=== PATIENT | male | born 1985 | race Hispanic/Latino ===

== ENCOUNTER 2017-05-31 23:42 | Emergency (ER) | payer SELFPAY ==
[2017-06-01 01:09] LABS: #Eosinphils 0.1 thou/uL (0.0-0.7); #Lymphocytes 1.6 thou/uL (1.20-3.40); #Neutrophils 9.7 thou/uL (1.40-6.50); %Basophils 0.4 % (0.0-1.0); %Eosinophils 0.8 % (0.0-10.0); %Lymphocytes 12.8 % (21.0-51.0); Hemoglobin 13.1 g/dL (14.0-18.0); Mean Corpuscular HGB CONC 33.8 g/dL (32.0-36.0); Mean Corpuscular Hemoglobin 32.1 pg (27.0-31.0); Mean Platelet Volume 7.9 fL (7.4-10.4); Platelet Count 265 thou/uL (130-400); RBC Distribution Width 11.9 % (11.5-14.5); Red Blood Cell (RBC) Count 4.08 mill/uL (4.70-6.10); White Blood Cell (WBC) Count 12.5 thou/uL (4.8-10.8)
[2017-06-01 01:15] LABS: PTT 26.1 SEC (22.9-36.1); Prothrombin Time 13.1 SEC (12.0-14.7)
[2017-06-01 01:33] LABS: ALT (SGPT) 88 U/L (8-55); AST (SGOT) 66 U/L (5-34); Albumin 3.7 g/dL (3.5-5.0); Alkaline Phosphatase 111 U/L (40-150); Anion Gap 11 mmol/L (10-20); BUN (Urea Nitrogen) 14 mg/dL (8.9-20.6); Bilirubin, Total 0.4 mg/dL (0.2-1.2); Calc. Creatinine Clearance 0 mL/min (70-130); Calcium 9.4 mg/dL (7.8-10.44); Carbon Dioxide 27 mmol/L (22-29); Chloride 103 mmol/L (98-107); Estimated GFR-MDRD Greater than 90; Globulin 2.9 g/dL (2.4-3.5); Glucose 120 mg/dL (70-105); Potassium 3.7 mmol/L (3.5-5.1); Protein, Total 6.6 g/dL (6.0-8.3); Sodium 137 mmol/L (136-145)
[2017-06-01] MEDS ORDERED: HYDROcodone/Acetaminophen 5/325 mg Tablet ONE (02:09)
[2017-06-01] MEDS ORDERED: Piperacillin/Tazobactam 4.5 GM in Sodium Chloride 0.9% 100 ML IVPB SCH (02:15)
--- NOTE | 2017-06-01 07:48 | RAD ---
RIGHT FOOT 3 VIEWS: HISTORY: Fall with injury and pain to right foot. FINDINGS: Tarsals appear intact. Metatarsals and phalanges appear intact. IMPRESSION: No acute fracture. POS: [facility]
--- NOTE | 2017-06-01 07:48 | RAD ---
RIGHT TIBIA FIBULA 2 VIEWS: HISTORY: Fall with injury to right lower extremity. Pain. FINDINGS: No fracture identified. No osseous abnormality is seen. IMPRESSION: No evidence of osseous abnormality. POS: [facility]
--- NOTE | 2017-06-01 07:56 | RAD ---
RIGHT KNEE 4 VIEWS: Date: 06/01/17 HISTORY: Fall, with injury and pain to right knee. FINDINGS: No evidence of fracture. No evidence of joint effusion. No other osseous abnormality. IMPRESSION: No acute fracture identified. POS: [facility]
--- NOTE | 2017-06-01 08:37 | ULT ---
PRELIMINARY REPORT/[facility]/EMERGENTY AFTER-HOURS PROCEDURE EXAM: US Duplex Right Lower Extremity Veins CLINICAL HISTORY: 32 years old, male; Pain; Other: Pain, redness, swelling medial rle TECHNIQUE: Real-time duplex ultrasound scan of the right lower extremity veins integrating B-mode two dimensiona l vascular structure, Doppler spectral analysis, color flow Doppler imaging and compression. COMPARISON: No relevant prior studies available. FINDINGS: Deep veins: No acute findings. No DVT in the common femoral, femoral, popliteal, visualized calf vein s. The veins demonstrate normal color flow, are normally compressible, with normal phasic flow and/or augmentation response. Superficial veins: No acute findings. No thrombus in the visualized great saphenous vein. Soft tissues: Prominent right inguinal lymph node. IMPRESSION: No deep venous thrombosis. Thank you for allowing us to participate in the care of your patient. Dictated and Authenticated by: Williams Painter MD 06/01/2017 2:20 AM Central Time ([place] & [place]) FINAL REPORT VENOUS DOPPLER ULTRASOUND OF THE RIGHT LOWER EXTREMITY: Date: 06/01/17 FINDINGS/IMPRESSION: I agree with the preliminary report given by Mathew. POS: [facility]
== END 2017-06-01 04:30 | disposition home or self-care (01) ==
LOC: ERS 23:42
DX: S80.12XA Contusion of left lower leg, initial encounter (principal); S80.11XA Contusion of right lower leg, initial encounter; L03.115 Cellulitis of right lower limb; W11.XXXA Fall on and from ladder, initial encounter
CPT/HCPCS: 36415; 80053; 85025; 85610; 85652; 85730; 86140; 87040; 96365; 96367; J2543; J3370; J7050

== ENCOUNTER 2017-06-04 21:22 | Emergency (ER) ==
[2017-06-04 22:18] LABS: #Basophils 0.1 thou/uL (0.0-0.2); #Eosinphils 0.2 thou/uL (0.0-0.7); #Lymphocytes 1.7 thou/uL (1.20-3.40); #Monocytes 0.6 thou/uL (0.11-0.59); #Neutrophils 4.8 thou/uL (1.40-6.50); %Basophils 1.1 % (0.0-1.0); %Eosinophils 2.5 % (0.0-10.0); %Lymphocytes 22.7 % (21.0-51.0); %Monocytes 8.5 % (0.0-10.0); %Neutrophils 65.3 % (42.0-75.0); Hemoglobin 14.7 g/dL (14.0-18.0); Mean Corpuscular HGB CONC 32.5 g/dL (32.0-36.0); Mean Corpuscular Volume 95.4 fl (80.0-94.0); Mean Platelet Volume 7.1 fL (7.4-10.4); Platelet Count 342 thou/uL (130-400); RBC Distribution Width 11.8 % (11.5-14.5); Red Blood Cell (RBC) Count 4.74 mill/uL (4.70-6.10); White Blood Cell (WBC) Count 7.4 thou/uL (4.8-10.8)
--- NOTE | 2017-06-04 23:03 | RAD ---
RIGHT KNEE FOUR VIEWS: 06/04/17 HISTORY: 32-year-old male with history of right knee pain. No evidence for acute fracture or dislocation. Medial soft tissue swelling which may be somewhat more prominent than on the prior study which certainly could be consistent with clinical concern for cell ulitis. IMPRESSION: No fracture or dislocation. Persistent and possibly slightly progressive medial soft tissue swelling. POS: [facility]
[2017-06-05] MEDS ORDERED: Lidocaine 1% w/Epinephrine 1:100K 20 ML VIAL ONE (00:24)
== END 2017-06-05 02:00 | disposition home or self-care (01) ==
LOC: ERS 21:22
DX: L02.415 Cutaneous abscess of right lower limb (principal); L03.115 Cellulitis of right lower limb
CPT/HCPCS: 10060; 85025; J2001

== ENCOUNTER 2017-06-06 20:29 | Emergency (ER) | payer SELFPAY ==
[2017-06-06] MEDS ORDERED: Lidocaine 1% PF 5 ML VIAL ONE (20:38)
[2017-06-06] MEDS ORDERED: Adacel (T-DAP) 0.5 ML VIAL ONE (21:14)
[2017-06-06 21:32] LABS: #Basophils 0.1 thou/uL (0.0-0.2); #Eosinphils 0.2 thou/uL (0.0-0.7); #Lymphocytes 1.8 thou/uL (1.20-3.40); #Monocytes 0.4 thou/uL (0.11-0.59); #Neutrophils 4.4 thou/uL (1.40-6.50); %Eosinophils 2.4 % (0.0-10.0); %Lymphocytes 25.9 % (21.0-51.0); %Monocytes 5.4 % (0.0-10.0); %Neutrophils 65.3 % (42.0-75.0); Hemoglobin 14.8 g/dL (14.0-18.0); Mean Corpuscular HGB CONC 34.6 g/dL (32.0-36.0); Mean Corpuscular Hemoglobin 32.9 pg (27.0-31.0); Mean Platelet Volume 6.9 fL (7.4-10.4); Platelet Count 411 thou/uL (130-400); RBC Distribution Width 11.9 % (11.5-14.5); Red Blood Cell (RBC) Count 4.49 mill/uL (4.70-6.10); White Blood Cell (WBC) Count 6.8 thou/uL (4.8-10.8)
[2017-06-06 21:52] LABS: ALT (SGPT) 146 U/L (8-55); AST (SGOT) 64 U/L (5-34); Albumin 3.9 g/dL (3.5-5.0); Alkaline Phosphatase 154 U/L (40-150); Anion Gap 15 mmol/L (10-20); BUN (Urea Nitrogen) 12 mg/dL (8.9-20.6); Bilirubin, Total 0.2 mg/dL (0.2-1.2); Calc. Creatinine Clearance 0 mL/min (70-130); Calcium 9.3 mg/dL (7.8-10.44); Carbon Dioxide 22 mmol/L (22-29); Chloride 104 mmol/L (98-107); Estimated GFR-MDRD Greater than 90; Globulin 3.9 g/dL (2.4-3.5); Glucose 139 mg/dL (70-105); Potassium 4.2 mmol/L (3.5-5.1); Protein, Total 7.8 g/dL (6.0-8.3); Sodium 137 mmol/L (136-145)
== END 2017-06-06 22:17 | disposition home or self-care (01) ==
LOC: ERS 20:29
DX: L03.115 Cellulitis of right lower limb; L02.415 Cutaneous abscess of right lower limb; Z79.899 Other long term (current) drug therapy
CPT/HCPCS: 10060; 36415; 80053; 85025; 85652; 86140; 87070; 87205; 90471; 90715; J2001

== ENCOUNTER 2017-06-09 19:02 | Emergency (ER) | payer SELFPAY | END 2017-06-09 19:45 | disposition home or self-care (01) | LOC: ERS 19:02 | DX: Z48.817 Encounter for surgical aftercare following surgery on the skin and subcutaneous tissue (principal) | CPT/HCPCS: 99282 ==